=== PATIENT | female | born 2005 | race Caucasian/White ===

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

== ENCOUNTER 2025-02-02 10:20 | Emergency (ER) | payer BC | END 2025-02-02 12:32 | disposition home or self-care (01) | LOC: ERS 10:20 | DX: Z77.098 Contact with and (suspected) exposure to other hazardous, chiefly nonmedicinal, chemicals (principal); F41.9 Anxiety disorder, unspecified | CPT/HCPCS: 99282 ==